=== PATIENT | female | born 1945 | race Caucasian/White ===

== ENCOUNTER 2017-04-18 16:28 | Inpatient (IN) | payer MEDICARE, OTHER ==
--- NOTE | ~2017-04-18 | HP ---
History And Physical [place] [id number] [facility] [place]. [address] NAME: RHEA LOCKHART : 43 STATUS : ADM Iris PAT#: [id number] AGE: 71 ADM/REG DATE : 04/18/17 MR#: [id number] REPORT SERV DATE: 04/18/17 DICTATED BY: KAMRAN ANTHONY DATE: 04/18/17 REPORT STATUS : Draft TRANSCRIBED BY: MILAGRO DATE: 04/18/17 DATE OF ADMISSION: 04/18/2017 REASON FOR ADMISSION: Hypoglycemic spell with blood sugar down to 26 with neurologic symptoms, possible left hemiparesis, improved from initial point. HISTORY OF PRESENT ILLNESS: This is a 71-year-old white female who lives alone. Her estranged brought her some food and found her on the floor. As it turns out, she had fallen from a stool onto her butt with bruising of her buttocks and some tenderness. She subsequently went to bed and she was found on the floor around 11:30, she went to bed around 11. She smokes about a pack of cigarettes a day at home and is by herself. She had some left hemiparesis when she came in and has gradually improved as her blood sugars improved. Her admitting blood sugar was 26. Her speech was slurred initially and now recovering and she feels cold. PAST MEDICAL HISTORY: The patient was last hospitalized on 05/10/2015, and she does not recall what for that time. She does not check her sugars at home. She takes diabetic medication routinely, Dr. Remberto Loco, sees her. He has scolded her for not taking her blood sugars well at home. She is on insulin there. Home medications are being identified at this time. SOCIAL HISTORY: She is estranged from her . She has three children who are alive and well. One daughter is estranged from her. She has one daughter who is sickly with rheumatoid arthritis that she has had since childhood. Her 2 daughters to whom she is close to lives in [place]. Her mother is 91, alive and well and she is estranged from her. She also lives in [place]. She does not attend buddhism. She sees Remberto Loco. She takes no alcohol, smokes a pack of cigarettes a day . She has 2 half sisters, both of which she is estranged from. REVIEW OF SYSTEMS: She has had no headache, eye pain, double vision, nausea, vomiting, diarrhea. No fits, seizures, or convulsions. No melena or hematemesis. She did have unilateral weakness on the left side, now improved as is the blood sugar now improving. No fever, chills, or night sweats. The remainder of the review of systems was negative. PHYSICAL EXAMINATION: VITAL SIGNS: Her blood pressure is 140/58 with a heart rate of 84, respiratory rate 18, oxygen saturation 91%. HEENT: EOMI. Sclerae are clear. Conjunctivae pink. NECK: No thyroid. No bruit. CHEST: Clear to A and P. HEART: Regular S1, S2 without murmur, gallop, or click. BREASTS: Grossly without mass. History And Physical [address] [address] NAME: RHEA LOCKHART : 43 STATUS : ADM Iris PAT#: [id number] AGE: 71 ADM/REG DATE : 04/18/17 MR#: [id number] REPORT SERV DATE: 04/18/17 DICTATED BY: KAMRAN ANTHONY DATE: 04/18/17 REPORT STATUS : Draft TRANSCRIBED BY: MILAGRO DATE: 04/18/17 ABDOMEN: Soft, nontender. Bowel sounds positive. EXTREMITIES: Have trace edema. NEUROLOGIC: Singleton's reflex is positive bilaterally. DTRs are very brisk on the left side greater than the right, though the right is very brisk, this is at the knee jerk and the upper extremities is similar. The upper extremities are symmetric and similar bilaterally. SKIN: Very velvety in appearance bilaterally. She has had no weight loss or tachycardia. LYMPHATICS: There is no adenopathy. LABORATORY DATA: The CMP showed a sodium 142, potassium 4.1, BUN 23, creatinine 1.14. GFR estimate 48 mL/minute. Her glucose is 27, albumin 34, globulin 39. CPK was 182. Troponin less than 0.01. The AST was elevated at 269 with alk phosphatase 189. ASSESSMENT: 1. Hypoglycemia with neurologic appearance of left hemiparesis. 2. Left hemiparesis, recovered. I am going to go ahead and check an ultrasound of carotid arteries to see if there is evidence of external carotid occlusion, she is improving, and the hypoglycemia is enough to explain these symptoms. 3. Dysarthria, now recovered. 4. Diabetes type 2. She does not check blood sugar at home. 5. History of chronic pain on chronic narcotic medication. 6. History of chronic anxiety. 7. Hypertension. 8. Cigarette abuse one pack per day. 9. We will increase her aspirin from 81 mg a day to 325 a day. Recheck her liver tests in the morning, though she may have fatty liver from the diabetes and noncompliance with diet. 10.Full identification, confirmation of home medications. Likely ultrasounds are negative. Neurologic examination . DB/MODL Kamran Anthony M.D. / [id number] CC: Serg Monique Jr, MD Richard Forrest Sowell, M.D.
--- NOTE | ~2017-04-18 | DS ---
Discharge Summary [facility] [address] [place]. [address] NAME: RHEA LOCKHART : 43 STATUS : ADM IN [facility]#: [id number] AGE: 71 ADM/REG DATE : 04/19/17 MR#: [id number] REPORT SERV DATE: 04/20/17 DICTATED BY: ALFRED MORRISON DATE: 04/20/17 REPORT STATUS : Draft TRANSCRIBED BY: MODL DATE: 04/20/17 ADMISSION DATE: 04/18/2017 DISCHARGE DATE: Ms. Lockhart is a 71-year-old female with a history of diabetes type 2, hypertension, who presented to the hospital via EMS status post low blood glucose at home. For further details, please refer to H and P dictated by Dr. Sofia on 04/18/2017. HOSPITAL COURSE: Upon presentation to the emergency room, workup noted a significantly low blood sugar at 27, which was subsequently corrected in the ER and the patient was admitted under the Hospitalist Service for observation. Her glucose was corrected to 101, however, the patient had several episodes of hypoglycemia. Her blood sugar got as low as 15. Her oral anti-hyperglycemic was held and insulin was discontinued with eventual improvement in her blood sugar, likely etiology of her significantly low blood sugar, the patient was on nateglinide and also high dose of insulin. On evaluation of her A1c, it was noted that her last A1c in December was 7.1, however, since 2014 her A1c has been under 7 with the exception of [id number] which was 7.1. Given these findings, insulin therapy not indicated at this time. Hence, insulin was discontinued as well as nateglinide, also known to cause hypoglycemia in elderly patients in the same way as glipizide or glimepiride can also cause hypoglycemia. The patient was subsequently kept on sliding scale insulin and her blood sugar has recovered. The etiology of her several episodes of hypoglycemia is likely due to the fact that she still had the metabolite of nateglinide in her system, which was helping to drive down her blood sugar. Given that her blood sugar now has recovered, the patient is hemodynamically stable. The patient will be discharged home with a quick followup with her primary care physician for more optimization of her diabetic therapy. Plan has been discussed with the patient, who voices understanding and is agreeable with this plan. DISCHARGE DIAGNOSES: 1. Hypoglycemia. 2. Diabetes type 2. 3. Hypertension. 4. Chronic kidney disease, stage 3. 5. Elevated liver enzyme. DISCHARGE EXAM: VITAL SIGNS: Blood pressure 154/71 with a pulse of 72, respirations 16, O2 saturation 95% on room air. GENERAL: The patient sitting in bed, eating breakfast, in no acute distress. Speaking in full sentences. HEENT: Normocephalic, atraumatic. Extraocular motors intact. Oral mucosa moist. Anicteric sclerae. No conjunctival injection. No pallor noted. NECK: Trachea midline and symmetric. No JVD noted. No thyromegaly present. No lymphadenopathy noted. CHEST: Nontender to palpation. CARDIOVASCULAR: Regular rate and rhythm. S1, S2. No murmurs, rubs, or gallops. LUNGS: Clear to auscultation bilaterally. No rales, crackles, rhonchi or wheezing. ABDOMEN: Flat, soft, positive bowel sounds. Nontender. Nondistended. Discharge Summary [address] [address] NAME: RHEA LOCKHART : 43 STATUS : ADM IN [facility]#: [id number] AGE: 71 ADM/REG DATE : 04/19/17 MR#: [id number] REPORT SERV DATE: 04/20/17 DICTATED BY: ALFRED MORRISON DATE: 04/20/17 REPORT STATUS : Draft TRANSCRIBED BY: MILAGRO DATE: 04/20/17 EXTREMITIES: No cyanosis, no clubbing, no edema. NEUROLOGIC: Alert and oriented x3. No focal deficits appreciated. DISCHARGE MEDICATIONS: 1. Aspirin 81 mg p.o. daily. 2. Atorvastatin 20 mg p.o. at bedtime. 3. Diltiazem 240 mg p.o. every morning. 4. Lisinopril 40 mg p.o. at bedtime. 5. Omeprazole 20 mg p.o. with lunch. 6. Metformin 500 mg p.o. twice a day. IMAGING: CT brain without contrast, impression: No acute intracranial abnormality. Carotid blood flow, impression, grade 2 findings involving the right internal carotid artery. For further details, please refer to imaging study from 04/19/2017. DISPOSITION: The patient will be discharged home. ACTIVITY: As tolerated. DIET: Diabetic diet. Greater than 30 minutes was spent coordinating care and providing counseling, medication reconciliation, writing prescription. DICTATED BY: MD VICTOR HUGO Branch/MILAGRO Alfred Morrison MD / [id number] CC: MD Remberto Branch M.D.
[2017-04-18 15:39] LABS: BASOPHILS 0.6 %; BASOPHILS ABSOLUTE 0.04 10/3/uL (0.0-0.16); EOSINOPHILS 0.1 %; EOSINOPHILS ABSOLUTE 0.01 10/3/uL (0.0-0.53); ER CBC TAT 0 Hrs 05 Mins; HEMATOCRIT 36.5 % (36.0-48.0); HEMOGLOBIN 12.5 g/dL (12.0-16.0); IMMATURE GRANULOCYTES 0.1 %; IMMATURE GRANULOCYTES ABSOLUTE 0.01 10/3/uL (0.0-0.11); LYMPHOCYTES 31.1 %; MANUAL DIFF NO %; MEAN CORPUS HGB CONC 34.2 g/dL (32.0-36.0); MEAN CORPUSCULAR HEMOGLOB 30.9 pg (26.0-34.0); MEAN CORPUSCULAR VOLUME 90.3 fL (80-100); MEAN PLATELET VOLUME 9.3 fL (9.2-13.0); MONOCYTES ABSOLUTE 0.47 10/3/uL (0.21-1.20); NEUTROPHILS 61.1 %; NEUTROPHILS ABSOLUTE 4.12 10/3/uL (2.02-8.40); PLATELET COUNT 276 10/3/uL (150-400); RBC DISTRIBUTION WIDTH 13.5 % (12.0-16.0); RED CELL COUNT 4.04 10/6/uL (4.0-5.6); WHITE BLOOD CELLS 6.8 10/3/uL (4.5-10.5)
[2017-04-18 15:47] LABS: PARTIAL THROMBO TIME 30.9 SEC (22.5-37.2)
[2017-04-18 15:48] LABS: PROTIME (NOT ORD) 13.3 SEC (12.0-14.5)
[2017-04-18 15:56] LABS: A/G RATIO 0.9 (0.7-1.9); ALBUMIN 3.4 G/DL (3.5-5.0); CHLORIDE, SERUM 113 MMOL/L (96-112); CO2 (CARBON DIOXIDE) 23 MMOL/L (24-34); GLOBULIN 3.9 G/DL (2.5-4.1); POTASSIUM, SERUM 4.1 MMOL/L (3.5-5.3); SGPT(ALT) 301 U/L (5-65); SODIUM, SERUM 142 MMOL/L (135-148); TOTAL BILIRUBIN 0.5 MG/DL (0-1.2); TOTAL PROTEIN 7.3 G/DL (6.0-8.5); TROPONIN I <0.02 NG/ML (<0.05)
[2017-04-18 15:57] LABS: ALKALINE PHOSPHATASE 189 U/L (45-117); BUN (BLOOD UREA NITROGEN) 23 MG/DL (6-23); CREATININE 1.14 MG/DL (0.55-1.02); GFR AFRICAN AMERICAN 56 ML/MIN (>=60); GFR NON AFRICAN AMERICAN 48 ML/MIN (>=60); GLUCOSE, SERUM 27 MG/DL (60-99)
[2017-04-18 15:58] LABS: CPK 182 U/L (0-200); SGOT(AST) 269 U/L (5-40)
[~2017-04-18 16:28] MED LIST: ASAB PO; ASMANEX 30110 MCG IH; ASMANEX INH; ATV1 PO; CALTRA600D PO; CARDCD240 PO; CENTRUM TAB1 TAB PO; DUONEB INH; LEVEMFLXPN SC; LIPITOR40 PO; LISINOPRIL40 MG PO; MAGOX4 PO; MULTIPLE VIT PO; NASAL MOIST0.65 % NAS; NOVOPEN SC; PRILO PO; PROAIR HFA INH; STARLIX120 PO; ZETIA PO
[2017-04-18] MEDS ORDERED: LIPITOR20 PO (16:53)
[2017-04-18] MEDS ORDERED: ATV.5 PO (16:53)
[2017-04-18] MEDS ORDERED: STARLIX120 PO (16:54)
[2017-04-18] MEDS ORDERED: PRILO PO (16:54)
[2017-04-18] MEDS ORDERED: OMEGA 3-6-9 PO (16:54)
[2017-04-18] MEDS ORDERED: CENTRUM PO (16:55)
[2017-04-18] MEDS ORDERED: NORCO1 TA2 PO (16:55)
[2017-04-18] MEDS ORDERED: AMB10 PO (16:56)
[2017-04-18] MEDS ORDERED: ASAB PO (16:56)
[2017-04-18] MEDS ORDERED: LISINOPRIL40 MG PO (16:56)
[2017-04-18] MEDS ORDERED: CARTIA XT240 MG/24 PO (16:58)
[2017-04-18] MEDS ORDERED: LANTUSCART SC (16:58)
[2017-04-18] MEDS ORDERED: VENTOLIN HFA INH (16:59)
[2017-04-18] MEDS ORDERED: NASAL SPRAY OTC NAS (17:00)
[2017-04-18 20:01] LABS: FREE T4 1.09 NG/DL (0.76-1.46); ULTRASENSITIVE TSH 0.973 MCIU/ML (0.358-3.740)
[2017-04-20 05:29] LABS: BASOPHILS 0.6 %; BASOPHILS ABSOLUTE 0.05 10/3/uL (0.0-0.16); EOSINOPHILS 2.3 %; EOSINOPHILS ABSOLUTE 0.18 10/3/uL (0.0-0.53); HEMATOCRIT 35.6 % (36.0-48.0); HEMOGLOBIN 11.9 g/dL (12.0-16.0); IMMATURE GRANULOCYTES 0.1 %; IMMATURE GRANULOCYTES ABSOLUTE 0.01 10/3/uL (0.0-0.11); LYMPHOCYTES 50.9 %; LYMPHOCYTES ABSOLUTE 3.92 10/3/uL (0.67-4.30); MEAN CORPUS HGB CONC 33.4 g/dL (32.0-36.0); MEAN CORPUSCULAR HEMOGLOB 30.7 pg (26.0-34.0); MEAN PLATELET VOLUME 9.5 fL (9.2-13.0); MONOCYTES 8.1 %; MONOCYTES ABSOLUTE 0.62 10/3/uL (0.21-1.20); NEUTROPHILS ABSOLUTE 2.92 10/3/uL (2.02-8.40); PLATELET COUNT 254 10/3/uL (150-400); RBC DISTRIBUTION WIDTH 13.4 % (12.0-16.0); RED CELL COUNT 3.87 10/6/uL (4.0-5.6); WHITE BLOOD CELLS 7.7 10/3/uL (4.5-10.5)
[2017-04-20 05:30] LABS: MANUAL DIFF NO %
[2017-04-20 05:34] LABS: A/G RATIO 0.8 (0.7-1.9); ALBUMIN 2.8 G/DL (3.5-5.0); CALCIUM, SERUM 8.7 MG/DL (8.5-10.4); CHLORIDE, SERUM 113 MMOL/L (96-112); CO2 (CARBON DIOXIDE) 22 MMOL/L (24-34); CREATININE 1.19 MG/DL (0.55-1.02); GFR AFRICAN AMERICAN 53 ML/MIN (>=60); GFR NON AFRICAN AMERICAN 46 ML/MIN (>=60); GLOBULIN 3.6 G/DL (2.5-4.1); GLUCOSE, SERUM 206 MG/DL (60-99); POTASSIUM, SERUM 4.1 MMOL/L (3.5-5.3); SGOT(AST) 59 U/L (5-40); SGPT(ALT) 134 U/L (5-65); SODIUM, SERUM 143 MMOL/L (135-148); TOTAL BILIRUBIN 0.3 MG/DL (0-1.2); TOTAL PROTEIN 6.4 G/DL (6.0-8.5)
[2017-04-20 05:37] LABS: ALKALINE PHOSPHATASE 132 U/L (45-117); BUN (BLOOD UREA NITROGEN) 18 MG/DL (6-23)
[2017-04-20] MEDS ORDERED: GLUCPH PO (10:03)
== END 2017-04-20 12:35 | disposition home or self-care (01) | DRG 638 ==
LOC: ER 16:28 → CDU1 16:48 → CDU2 18:19
PROVIDERS: Hospitalist; Specialist
DX: E11.649 Type 2 diabetes mellitus with hypoglycemia without coma (principal); G81.94 Hemiplegia, unspecified affecting left nondominant side; E11.22 Type 2 diabetes mellitus with diabetic chronic kidney disease; N18.3 Chronic kidney disease, stage 3 (moderate); T38.3X5A Adverse effect of insulin and oral hypoglycemic [antidiabetic] drugs, initial encounter; R47.1 Dysarthria and anarthria; I12.9 Hypertensive chronic kidney disease with stage 1 through stage 4 chronic kidney disease, or unspecified chronic kidney disease; F17.210 Nicotine dependence, cigarettes, uncomplicated; G89.29 Other chronic pain; Z79.891 Long term (current) use of opiate analgesic
CPT/HCPCS: 70450; 71020; 80053; 81001; 82550; 82947; 82962; 84439; 84443; 84484; 85025; 85610; 85730; 93005; 93880; 96374; 99285; A9270-GY